=== PATIENT | male | born 1950 | race Caucasian/White ===

== ENCOUNTER 2016-07-24 12:19 | Emergency (ER) | payer OTHER ==
[2016-07-24 12:24] VITALS: O2SAT 94
[2016-07-24] MEDS ORDERED: DEXAMETHASONE VARIABLE DOSE PO ONE (13:34)
--- NOTE | 2016-07-24 13:40 | EDPHY ---
H & P Stated Complaint: idiopathic thrombocytopenia Time Seen by Provider: 07/24/16 12:41 HPI/ROS: CHIEF COMPLAINT: Low platelet HISTORY OF PRESENT ILLNESS: This is a 66-year-old male with a history of idiopathic thrombocytopenia. He does not have a physician in [place] but spends some of his time here (he travels for work). He was diagnosed with ITP 5 years ago. Since that time he has required treatment several times, most recently over [place]. At that time he was in [place] , where he presented with ecchymoses and petechiae. He was found to have a platelet count of 8000. He was treated with dexamethasone 40 mg daily for 4 days. Platelet count on July 20 was 38,000. He has not been aware of any recent bleeding. He has not noticed any skin lesions. He has not had abdominal pain. He had a diarrheal illness last week and denies any blood in his stool. He has not been aware of hematuria. However, he does feel fatigued. He presented at the lab today and had his blood drawn. He was found to have a platelet count of 3000. He was apparently notified by phone of this result and was advised to come to the emergency department. REVIEW OF SYSTEMS: A ten point review of systems was performed and is negative with the exception of the items mentioned in the HPI. 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 - Physical Exam Exam: General Appearance: Alert. Vital signs reviewed. Eyes: Pupils equal and round, no conjunctival injection, no discharge. Anicteric. ENT, Mouth: Mucous membranes are moist, no oropharyngeal erythema or edema. Neck: No lymphadenopathy, supple. Respiratory: Lungs are clear to auscultation; no wheezes, rales, or rhonchi. Cardiovascular: Regular rate and rhythm; no murmur, rub, or gallop. Gastrointestinal: Abdomen is soft and nontender, no masses or organomegaly, bowel sounds normal. Skin: Warm and dry, normal color. He has a few scattered petechiae on his left upper arm and both lower legs. No other bruising or evidence of bleeding. Back: Nontender to palpation over the thoracolumbar spine. No CVAT. Extremities: No lower extremity edema, no calf tenderness or swelling. Neurological: Alert and oriented. Moving all four extremities easily and equally. Psychiatric: Normal affect. Constitutional: Initial Vital Signs Temperature (C) 36.3 C 07/24/16 12:21 Heart Rate 92 07/24/16 12:21 Respiratory Rate 16 07/24/16 12:21 Blood Pressure 101/68 07/24/16 12:21 O2 Sat (%) 94 07/24/16 12:21 O2 Delivery Mode Room Air Allergies/Adverse Reactions: Penicillins Allergy (Verified 07/24/16 12:24) Home Medications: Medication Instructions Recorded Dexamethasone 4 mg PO DAILY #10 tablet 07/24/16 Medical Decision Making ED Course/Re-evaluation: 66-year-old male with known ITP who recently underwent treatment with dexamethasone for a platelet count of 8000. [place] count [place] [address]898 , however repeat labs 2 days later (today) showing to have a platelet count of 3000. I have spoken with Dr. Carmelo Leyva. He recommends either hospitalization with IVIG or resumption of Decadron 40 mg orally and an appointment in their office tomorrow for discussion of other treatments such as retuximab. Patient is agreeable to resuming oral Decadron and he will call the oncology office tomorrow to find out when he should come for his appointment. We reviewed danger signs that should prompt him to be re-evaluated as soon as possible. I do not find any evidence of acute bleeding at this time. I do not find evidence for any other issues such as infection. He appears well hydrated after his recent diarrheal illness. Departure - Departure Disposition: Home, Routine, Self-Care Clinical Impression: Idiopathic thrombocytopenic purpura Condition: Good Instructions: Immune Thrombocytopenia (ED) Additional Instructions: You will be seen in the oncology office tomorrow. I spoke with Dr. Leyva, oncologist, about you today. I am providing you with their office number. Call the office at 8:00 a.m. to find out the time of your appointment. If you develop bleeding, abdominal pain, lightheadedness or fainting--any new or concerning symptoms--please return to the emergency department. I am giving you a prescription for dexamethasone, in case there is a problem with tomorrow's appointment. Referrals: Carmelo Leyva MD [Medical Doctor] - As per Instructions Prescriptions: Dexamethasone 4 mg PO DAILY #10 tablet
[2016-07-24 14:16] VITALS: BP 105/71; PULSE 75; RESP 14; TEMP 98.8
== END 2016-07-24 14:16 | disposition home or self-care (01) ==
DX: D69.3 Immune thrombocytopenic purpura (principal)

== ENCOUNTER 2016-10-12 12:06 | Emergency (ER) | payer OTHER ==
[2016-10-12 13:16] VITALS: BP 116/71; PULSE 76; RESP 18; TEMP 97.3; O2SAT 92
--- NOTE | 2016-10-12 14:01 | UCPHY ---
H & P Time Seen by Provider: 10/12/16 13:19 Patient Type: Established HPI/ROS: Chief complaint: persistent cough for 5 weeks HPI: 66-year-old male who some 5 weeks ago 1st had a fever, body aches and a dry cough. There is also headache. However ritual symptoms had spotted within 2-3 days except for this lingering cough which keeps ongoing. There has been no post tussive emesis. He was immunized as a child. He is worried that he has a sinus infection. Evidently during the course of his Decadron therapy for a 3rd bout of ITP he developed a sinus infection that required surgery. He is fearful that he is developing another 1 as he is having this persistent cough. He denies any postnasal drip. He has had no forehead or maxillary sinus pain. He has had no fevers or chills or rigors. There has been no sore throat or difficulty swallowing or change in voice. ROS: Constitutional - no fevers or chills. Eyes - no discharge, or injection ENT - no earache, change in hearing, difficulty swallowing, sore throat. Respiratory - No Shortness of breath, phlegm, wheezing or pleuritic chest pain. The cough is dry, irritating. Musculoskeletal - no joint or muscle pain. Integument - no rashes. Neurological - no headache, numbness, tingling, or paresthesias. No focal motor weakness. Immunological - no swelling or lymphadenopathy 10 point ROS otherwise negative Smoking Status: Unknown if ever smoked Physical Exam: Gen: Well developed, well nourished. Nontoxic. HEENT: Normocephalic. Ears: TMs are clear. Hearing normal. Eyes: PERRL. No conjunctival injection or pallor. no jaundice. Nose: No nasal discharge. Sinuses are nontender, and there is no pain when he leans forward Throat: Membranes are moist. Oropharynx is without erythema or exudate. Normal phonation. Lungs: Good air entry into both lungs. No rales rhonchi, scant wheeze with forced exhalation. No air hunger. No respiratory distress. Skin: Good color, without pallor. There is no diaphoresis. Skin is warm and dry , without diaphoresis. Intact without rashes Constitutional: Initial Vital Signs Temperature (C) 36.3 C 10/12/16 12:10 Heart Rate 76 10/12/16 12:10 Respiratory Rate 18 10/12/16 12:10 Blood Pressure 116/71 10/12/16 12:10 O2 Sat (%) 92 10/12/16 12:10 O2 Delivery Mode Room Air Allergies/Adverse Reactions: Penicillins Allergy (Unknown, Verified 10/12/16 13:04) Home Medications: Medication Instructions Recorded Dexamethasone 4 mg PO DAILY #10 tablet 07/24/16 Albuterol [Proventil Inhaler HFA 2 puffs IH Q4 #1 mdi 10/12/16 (*)] Benzonatate 200 mg PO TID PRN #28 capsule 10/12/16 Cefpodoxime Proxetil [Vantin] 200 mg PO BID #20 tab 10/12/16 Medical Decision Making ED Course/Re-evaluation: He is really politely adamant that he needs an antibiotic for his worry of regarding signs of infection. His penicillin allergy was a remote problem as a child which was strictly rash in fact he has tolerated cephalosporins early in the year without difficulty. Finally, he does not want to have a chest x- ray as he feels he needs treatment for the sinus infection. Warned. Differential Diagnosis: Diagnostic considerations include, but are not limited to, the following: URI, sinusitis, pharyngitis, otitis media, pneumonia, allergy. Departure - Departure Disposition: Home, Routine, Self-Care Clinical Impression: Sinusitis Qualifiers: Sinusitis location: sphenoidal Chronicity: acute Recurrence: not specified as recurrent Qualified Code(s): J01.30 - Acute sphenoidal sinusitis, unspecified Condition: Good Instructions: Sinusitis (ED) Additional Instructions: Afrin for 5 days Proventil inhaler 4 times daily for 14 days Referrals: NONE *PRIMARY CARE P,. [Primary Care Provider] - As per Instructions Prescriptions: Albuterol [Proventil Inhaler HFA (*)] 2 puffs IH Q4 #1 mdi Benzonatate 200 mg PO TID PRN #28 capsule PRN Reason: Cough, Moderate Cefpodoxime Proxetil [Vantin] 200 mg PO BID #20 tab - PQRS PQRS Measurement: 134: Depression screening and followup, PRIME MD-PHQ2 (12 years and older) Over the last 2 weeks, how often have you been bothered by any of the following problems? 1. Feeling down, depressed, or hopeless? 2. Little interest or pleasure in doing things? [Patient answered no to both 1 and 2] 130: Documentation of medications. [Reviewed all patient medications, doses, route and frequency.] . 226: Do you smoke? [No.] 47: 65 and older: Advanced care planning. Patient designates surrogate decision maker as [spouse] . 51: 18 years old and older with diagnosis of COPD, spirometry performance. [Patient has no history of COPD] 52: 18 years old and older with COPD and symptoms of COPD or FEV1<60% predicted prescribed a B Agonist. [Patient has no history of COPD]
== END 2016-10-12 14:54 | disposition home or self-care (01) ==
LOC: CED 12:06
DX: J01.30 Acute sphenoidal sinusitis, unspecified (principal)
CPT/HCPCS: 99214-PO; G0463-PO

== ENCOUNTER → 2018-09-27 | Outpatient (CLI) | payer OTHER, MEDICARE | LOC: FIMAGING 14:40 | PROVIDERS: ATTEND Physical Medicine & Rehabilitation | DX: M51.34 Other intervertebral disc degeneration, thoracic region (principal); M50.321 Other cervical disc degeneration at C4-C5 level; M50.322 Other cervical disc degeneration at C5-C6 level; M12.88 Other specific arthropathies, not elsewhere classified, other specified site; M48.02 Spinal stenosis, cervical region; M99.71 Connective tissue and disc stenosis of intervertebral foramina of cervical region; R93.89 Abnormal findings on diagnostic imaging of other specified body structures ==